=== PATIENT | female | born 1990 | race American Indian/Alaskan Native ===

== ENCOUNTER 2016-10-12 01:00 | Emergency (ER) | payer OTHER, MEDICAID | END 2016-10-12 05:30 | disposition left against medical advice (07) | LOC: ED 01:00 | DX: M54.5 Low back pain (principal); Z53.21 Procedure and treatment not carried out due to patient leaving prior to being seen by health care provider ==

== ENCOUNTER 2019-05-02 07:22 | Emergency (ER) | payer BC, MEDICAID, OTHER ==
[2019-05-02 07:28] VITALS: BP 125/63
--- NOTE | 2019-05-02 09:18 | Emergency Department Report ---
- General Chief complaint: Wound/Laceration Stated complaint: DRAINAGE FROM C SECTION Time Seen by Provider: 05/02/19 09:12 Source: patient Mode of arrival: Ambulatory Limitations: No Limitations - History of Present Illness Initial comments: 29-year-old female status post 5 days ago. Patient presents to ER today due to drainage from left side of incision site since yesterday. Patient states drainage is clear, nonbloody. Patient denies fever or pain. OB: Dr Claire Taylor MD complaint: other (drainage from ) -: days(s) (1) Severity: mild Quality: other (painless) Consistency: intermittent Improves with: none Worsens with: none Context: other (recent surgery) Associated symptoms: denies other symptoms Treatments Prior to Arrival: bandages - Related Data Allergies Allergy/AdvReac Type Severity Reaction Status Date / Time No Known Allergies Allergy Unverified 05/02/19 07:23 Abscess Boil HPI - HPI Chief Complaint: Wound/Laceration Stated Complaint: DRAINAGE FROM C SECTION Time Seen by Provider: 05/02/19 09:12 Allergies/Adverse Reactions: Allergies Allergy/AdvReac Type Severity Reaction Status Date / Time No Known Allergies Allergy Unverified 05/02/19 07:23 ED Review of Systems ROS: Stated complaint: DRAINAGE FROM C SECTION Other details as noted in HPI Comment: All other systems reviewed and negative Constitutional: denies: chills, fever Gastrointestinal: denies: abdominal pain, nausea, vomiting Skin: as per HPI ED Past Medical Hx - Past Medical History Previous Medical History?: Yes Additional medical history: Childbirth x 2 - Surgical History Past Surgical History?: Yes Additional Surgical History: x 2 - Social History Smoking Status: Never Smoker Substance Use Type: Prescribed ED Physical Exam - General Limitations: No Limitations General appearance: alert, in no apparent distress - Head Head exam: Present: atraumatic, normocephalic - Eye Eye exam: Present: normal appearance, PERRL, EOMI - ENT ENT exam: Present: mucous membranes moist - Neck Neck exam: Present: normal inspection - Respiratory Respiratory exam: Present: normal lung sounds bilaterally. Absent: respiratory distress - Cardiovascular Cardiovascular Exam: Present: regular rate, normal rhythm - GI/Abdominal GI/Abdominal exam: Present: soft, other ( incision site appears clean and intact; no obvious drainage or dehiscence of wound; no foul smell present; no erythema). Absent: distended, tenderness - Extremities Exam Extremities exam: Present: normal inspection - Neurological Exam Neurological exam: Present: alert, oriented X3 - Psychiatric Psychiatric exam: Present: normal affect, normal mood - Skin Skin exam: Present: warm, dry ED Course Vital Signs 05/02/19 07:26 Temperature 98.1 F Pulse Rate 72 Respiratory 18 Rate Blood Pressure 125/63 O2 Sat by Pulse 98 Oximetry - Consultations Consultation #1: 05/02/19 09:19 Spoke w/ Dr Taylor. Have pt f/u in office tomorrow ED Medical Decision Making - Medical Decision Making - afebrile - no obvious dehiscence present - f/u in office tomorrow Critical care attestation.: If time is entered above; I have spent that time in minutes in the direct care of this critically ill patient, excluding procedure time. ED Disposition Clinical Impression: Problem involving surgical incision Disposition: DC-01 TO HOME OR SELFCARE Is pt being admited?: No Condition: Stable Instructions: Suture Care (ED) Referrals: CHAUNCEY TAYLOR MD [Staff Physician] - 3-5 Days Time of Disposition: 09:21
== END 2019-05-02 09:30 | disposition home or self-care (01) ==
LOC: ED 07:22
DX: T81.89XA Other complications of procedures, not elsewhere classified, initial encounter (principal); Y92.89 Other specified places as the place of occurrence of the external cause
CPT/HCPCS: 99281